=== PATIENT | male | born 1990 | race Caucasian/White ===

== ENCOUNTER 2016-10-02 10:39 | Emergency (ER) | payer SELFPAY ==
--- NOTE | 2016-10-04 01:33 | ER ---
ADMIT: 10/02/2016 RM/LOC: ER [facility] MR#: [id number] [address] [id number] SHRUTI BROWN [address] [place] [address] Emergency Room Report SEX: M AGE: 26 : 1990 DATE: 10/02/2016 TIME: 1039. Please refer to my T-sheet for complete H and P. HISTORY OF PRESENT ILLNESS: The patient is a 26-year-old, who comes in with chest pain. It started about an hour ago. 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 It is substernal, does not radiate anywhere, he rates it 2/10. He does feel a little bit shortness of breath. Never had pain like this before. He has not been sick. No other complaints. No leg swelling. No recent cold-like symptoms. He does not smoke. PHYSICAL EXAMINATION: VITAL SIGNS: His blood pressure is 155/84, pulse 105, respirations 15, temperature 100, sat 96%. GENERAL: No acute distress. HEENT: Grossly normal. LUNGS: Clear. HEART: Regular. ABDOMEN: Obese. EXTREMITIES: He has 2+ edema. NEUROLOGIC: Alert and oriented, nonfocal. EMERGENCY DEPARTMENT COURSE: CBC was normal. Chemistries normal. Troponin negative. EKG; sinus rhythm, rate 103, no changes. CT chest was essentially negative. I gave him Toradol, he is feeling better. He was ready for discharge. ASSESSMENT: Atypical chest pain. PLAN: Exercise, return if worse. Tylenol and Motrin. Follow up with Dr. Lombardi. Javier Tapia MD/ damian JOB #: [id number] CC: Javier Tapia MD, Attending Physician UNKNOWN, Family Physician
== END 2016-10-02 12:50 | disposition home or self-care (01) ==
LOC: ER 10:39
DX: R07.89 Other chest pain (principal); Z88.2 Allergy status to sulfonamides